=== PATIENT | male | born 1955 | race Caucasian/White ===

== ENCOUNTER 2020-03-09 08:39 | Outpatient (CLI) | payer MEDICARE, SELFPAY ==
--- NOTE | 2020-03-09 08:58 | CT_ITS ---
WS: [id number] CT neck w con* [id number] REASON FOR EXAM: NECK MASS IV CONTRAST ADMINISTERED: Omnipaque 300 95 mL TOTAL EXAM DLP: 774.[address] scans at [facility] use at least one of these dose optimization techniques: automat ed exposure control; mA and/or kV adjustment per patient size (includes targeted exams where dose is matched to clinical indication); or iterative reconstruction. FINDINGS: The soft tissue the neck was evaluated with coronal sagittal and axial planes. IV contrast was utilized. The parotid glands appear to be normal. The submaxillary glands were normal. Prespinal area showed no definite masses. The mandibular region show no definite masses there is evidence of multiple slightly enlarged anterio r chain lymph nodes present the largest on the left measured 0.98 cm. No aggressiveness of the lympha denopathy is seen. The paranasal sinuses are all normal. There is a retention cyst in the left maxilla. No destructive changes of the mandible are seen. The tongue area appear to be normal with no infiltrating changes noted. The left carotid artery is deviated slightly but no masses associated with this deformity are noted. The muscularis areas were normal throughout the neck anterior posterior chain. CT/CT neck w con* [id number] IMPRESSION: Benign lymphadenopathy in the anterior chain of the neck There is no gross masses identified on this study. A retention cyst in the left maxillary antrum.
--- NOTE | 2020-03-09 08:58 | CT_ITS ---
WS: [id number] CT LUNG CANCER SCREENING DLP: 99.77 mGy.cm DIvol: 2.44 mGy CLINICAL INFORMATION SCREENING VISIT: Baseline COMPARISON: No similar studies. FINDINGS Diagnostic quality: Satisfactory Comments: None. Lung Nodules: No pulmonary nodules. There is a very mild groundglass attenuation in the periphery of the RIGHT upper lobe posterior to the sternoclavicular joint. Subsolid opacification measuring less t shay 30 mm. Lungs: Chronic emphysema. No pneumonia. No bronchiectasis. Heart: Normal size heart. Moderate to severe atherosclerosis in the [place] coronary arteries. Other findings: Moderate atherosclerosis aorta. No aneurysm in the pulmonary artery size is normal. S mall benign-appearing lymph nodes in the mediastinum/measuring less than [address]/CT lung screening [id number] IMPRESSION: LUNG-RADS: 2S-Benign Appearance or Behavior with Significant Findings FOLLOW UP: 12 Month: Continue annual screening with LDCT Moderate to severe coronary artery calcifications.
[2020-03-09 09:32] LABS: Blood Urea Nitrogen 12 mg/dL (8-23); Glomerular Filtration Rate 84.7 mL/min (90-130)
[2020-03-09] MEDS: iohexol 300 mg/mL 100 mL Btl IV (10:18)
== END 2020-03-09 08:40 | disposition home or self-care (01) ==
LOC: RAD 08:45
PROVIDERS: PCP Internal Medicine; Visit Provider Internal Medicine
DX: F17.218 Nicotine dependence, cigarettes, with other nicotine-induced disorders (principal); Z12.2 Encounter for screening for malignant neoplasm of respiratory organs; R59.1 Generalized enlarged lymph nodes; M27.40 Unspecified cyst of jaw; I25.10 Atherosclerotic heart disease of native coronary artery without angina pectoris
CPT/HCPCS: 36415; 70491; 82565; 84520; G0297

== ENCOUNTER 2020-08-13 14:41 | Outpatient (CLI) | payer MEDICARE, SELFPAY ==
--- NOTE | 2020-08-13 14:48 | USCV_ITS ---
Stefan Ashleymie Age: 64 Gender: M : 1955 Exam Date: 08/13/2020 15:17 Ordering Phys: Ann Copeland MD Technologist: Princess Fernandez Exam Location: [facility] [place] Indication: MURMUR BP: 149 / 71 HR: 104 Rhythm: Sinus Technical Quality: Technically difficult study MEASUREMENTS (Male / Female) Normal Values 2D ECHO LV Diastolic Diameter PLAX 5.2 cm 4.2 - 5.9 / 3.9 - 5.3 cm LV Systolic Diameter PLAX 4.3 cm LV Chamber Size 4.3 cm IVS Diastolic Thickness 1.7 cm 0.6 - 1.0 / 0.6 - 0.9 cm IVS Systolic Thickness 1.6 cm LVPW Diastolic Thickness 1.2 cm 0.6 - 1.0 / 0.6 - 0.9 cm LVPW Systolic Thickness 1.6 cm RV Chamber Size 2.9 cm LVOT Diameter 2.1 cm LV Ejection Fraction 2D Teich 34.4 % LV Ejection Fraction MOD 2C 25.8 % LV Ejection Fraction 2C AL 23.1 % LA Diameter 3.0 cm LA Width 3.4 cm LA Height 5.3 cm RA Width 2.3 cm RA Height 4.3 cm Aorta at Sinotubular Diameter 2.5 cm M-MODE LV Diastolic Diameter MM 6.6 cm 4.2 - 5.9 / 3.9 - 5.3 cm LV Systolic Diameter MM 5.4 cm LV Ejection Fraction MM Teich 36.1 % IVS Diastolic Thickness MM 1.2 cm 0.6 - 1.0 / 0.6 - 0.9 cm IVS Systolic Thickness MM 1.7 cm LVPW Diastolic Thickness MM 1.2 cm 0.6 - 1.0 / 0.6 - 0.9 cm LVPW Systolic Thickness MM 1.4 cm RV Diastolic Diameter MM 0.6 cm Aortic Annulus Diameter 3.5 cm LA Ao Ratio MM 1.0 MV E Point Septal Separation 1.6 cm DOPPLER AV Peak Velocity 273.0 cm/s LVOT Peak Velocity 138.0 cm/s AV Area Cont Eq vti 1.7 cm squared AV Area Cont Eq pk 1.7 cm squared MV Area PHT 4.0 cm squared Mitral E to A Ratio 0.6 MV E' Velocity 33.0 cm/s Mitral E to MV E' Ratio 9.4 Mitral E to LV E' Lateral Ratio 10.3 Mitral E to LV E' Septal Ratio 8.9 TR Peak Velocity 32.0 cm/s TR Peak Gradient 0.4 mmHg TV Peak E Velocity 40.0 cm/s PV Peak Velocity 129.0 cm/s RV Acceleration Time 0.1 s RV Ejection Time 0.2 s RV AcT/ET 0.3 FINDINGS Left Ventricle Mildly increased left ventricular cavity size. Moderately decreased left ventricular systolic function. Left ventricular ejection fraction is estimated at 40 %. Global left ventricular hypokinesis. Grade II/IV diastolic dysfunction, moderately elevated filling pressures. Right Ventricle The right ventricle is normal in size and function. Right Atrium The right atrium is normal in size. Left Atrium The left atrium is normal in size. Mitral Valve Moderately thickened mitral valve. Moderate mitral annular calcification. No mitral valve stenosis. Trace mitral valve regurgitation. Aortic Valve Mild aortic valve calcification. No aortic valve stenosis. Mild aortic valve regurgitation. Tricuspid Valve Structurally normal tricuspid valve without significant stenosis or regurgitation. Pulmonary artery systolic pressure is normal. Pulmonic Valve Structurally normal pulmonic valve without significant stenosis. There is no pulmonic regurgitation. Pericardium Normal pericardium without effusion. Aorta Normal ascending aorta dimension. CONCLUSIONS 1-Mildly increased left ventricular cavity size. Moderately decreased left ventricular systolic function. Left ventricular ejection fraction is estimated at 40 %. Global left ventricular hypokinesis. Grade II/IV diastolic dysfunction, moderately elevated filling pressures. 2-Moderately thickened mitral valve. Moderate mitral annular calcification. No mitral valve stenosis. Trace mitral valve regurgitation. 3-Mild aortic valve calcification. No aortic valve stenosis. Mild aortic valve regurgitation. 4-Structurally normal tricuspid valve without significant stenosis or regurgitation. Pulmonary artery systolic pressure is normal. 5-There is no pericardial effusion. 6-There are no prior echocardiogram studies to compare. Derek De Los Santos MD (Electronically Signed) Final Date: 13 August 2020 20:09 S
== END 2020-08-13 14:42 | disposition home or self-care (01) ==
LOC: US 14:43
PROVIDERS: PCP Internal Medicine; Visit Provider Internal Medicine
DX: R01.1 Cardiac murmur, unspecified (principal); I08.0 Rheumatic disorders of both mitral and aortic valves
CPT/HCPCS: 93306

== ENCOUNTER 2021-03-23 12:50 | Outpatient (CLI) | payer MEDICARE, SELFPAY ==
--- NOTE | 2021-03-23 13:05 | CT_ITS ---
WS: [id number] LDCT LUNG CANCER SCREENING TECHNIQUE: Noncontrast CT of the chest with coronal and sagittal reformatted images. CLINICAL INFORMATION: NICOTINE DEPENDENCE,CIGARETTES W/OTHER NICOTINE DISORDERS COMPARISON: CT March 09, 2020 DLP: 64.48 mGy.cm DIvol: 1.[address] scans at [facility] use at least one of these dose optimization techniques: automat ed exposure control; mA and/or kV adjustment per patient size (includes targeted exams where dose is matched to clinical indication); or iterative reconstruction. FINDINGS: Again seen is hazy parenchymal attenuation in the right upper lobe unchanged since the prior examinat ion may represent chronic fibrosis. This is unchanged from previous. This measures approximately 3.0 CM. Aortic calcification. No mediastinal or hilar lymphadenopathy. Coronary calcification. Adrenal glands are normal. Hypertrophic changes thoracic spine. Calcified granuloma right lower lobe. CT/CT lung screening [id number] IMPRESSION: LUNG-RADS: 2-Benign Appearance or Behavior FOLLOW UP: 12 Month: Continue annual screening with LDCT
== END 2021-03-23 12:51 | disposition home or self-care (01) ==
LOC: RAD 12:55
PROVIDERS: PCP Internal Medicine; Visit Provider Internal Medicine
DX: Z12.2 Encounter for screening for malignant neoplasm of respiratory organs (principal); F17.218 Nicotine dependence, cigarettes, with other nicotine-induced disorders
CPT/HCPCS: 71271

== ENCOUNTER 2021-05-18 10:37 | Outpatient (CLI) | payer MEDICARE, SELFPAY ==
--- NOTE | 2021-05-18 11:00 | CT_ITS ---
WS: [id number] CT ANGIOGRAPHY OF THE ABDOMINAL AORTA WITH RUNOFF TO THE ANKLES HISTORY: I73.9 - Peripheral vascular disease, unspecified TECHNIQUE: Arterial injection is performed during imaging to evaluate the aorta and runoff vessels to the ankles. MIP and volume rendering imaging has also been performed. All images are reviewed. All C T scans at [facility] use at least one of these dose optimization techniques: automated ex posure control; mA and/or kV adjustment per patient size (includes targeted exams where dose is match ed to clinical indication); or iterative reconstruction. Contrast: Omnipaque 350; 95 mL IV. DLP: 1634.7 mGycm COMPARISON: 08/01/2017 Abdominal aorta: There is heavy calcified plaque throughout the abdominal aorta. There is soft tissue plaque and calcified plaque beginning below the level of the renal arteries. Greater than 50% stenos is involving the infrarenal aorta to the bifurcation. Calcified plaque with no high-grade obstruction involving the celiac axis and SMA. Renal arteries are patent. RIGHT lower extremity arterial system: There is occlusion involving the origin of the RIGHT common il iac artery. No contrast enhancement from the RIGHT common iliac artery to the common femoral artery o howie the femoral. Collateral circulation from the abdominal wall musculature branches. Very small daylin bhanu SFA and deep profunda. Multifocal areas of calcification significant stenoses in the distal SFA a nd Cooper's canal. Calcified plaque in the popliteal artery. Very small three-vessel caliber runoff t o the ankles. The anterior tibial and peroneal arteries are not identified below the mid tibia. LEFT lower extremity arterial system: Complete occlusion involving the proximal LEFT common iliac art sully. Reconstitution through the common femoral artery. Very small caliber superficial femoral artery and deep profunda. Multifocal areas of significant stenoses throughout the SFA to Cooper's canal. Com plete occlusion at Cooper's canal with reconstitution in the distal popliteal artery via the genicula te arteries. Small caliber three-vessel runoff distal to the tibia. Distally the anterior and peronea l arteries are very difficult to see and probably occluded. Posterior tibial artery is intact. Liver, gallbladder, spleen and adrenal glands and pancreas and kidneys are negative for any acute pro cess. No adenopathy or ascites. No GI tract obstruction. Prostate gland is mildly enlarged encroachin g into the bladder. Grade 1 anterolisthesis of L5 due to bilateral pars defects. CT/CT angio abd aorta runof [id number] IMPRESSION: 1. 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 Similar to the prior examination. 2. Multifocal areas of moderate to high-grade stenosis within the RIGHT superf icial femoral artery and popliteal artery. Similar to the prior study. 3. Complete occlusion LEFT proximal common iliac artery to the common femoral artery. This occlusion is new since 08/01/2017. 4. Multifocal areas of significant stenosis throughout the LEFT superficial fe moral artery to Cooper's canal. Complete occlusion and Cooper's canal with nilda nstitution via kidney is at the popliteal artery. 5. Very poor three-vessel runoff to the ankles. The anterior tibial and perone al arteries are occluded as described above with patent posterior tibial arteri es. 6. Moderate stenosis, greater than 50% involving the infrarenal abdominal aort a. Progression of the aortic stenosis since 2017.
[2021-05-18 11:33] LABS: Blood Urea Nitrogen 11 mg/dL (8-23); Glomerular Filtration Rate 134.8 mL/min (90-130)
[2021-05-18] MEDS: iohexol 350 mg/mL 100 mL Btl IV (11:47)
== END 2021-05-18 10:38 | disposition home or self-care (01) ==
PROVIDERS: PCP Internal Medicine; Visit Provider Internal Medicine
DX: I73.9 Peripheral vascular disease, unspecified (principal); M79.606 Pain in leg, unspecified; I74.5 Embolism and thrombosis of iliac artery; I70.8 Atherosclerosis of other arteries; I35.0 Nonrheumatic aortic (valve) stenosis
CPT/HCPCS: 75635; 82565; 84520; Q9967

== ENCOUNTER → 2021-07-08 11:30 | Outpatient (BNVA) | payer MEDICARE, SELFPAY | PROVIDERS: PCP Internal Medicine; Referring Provider Internal Medicine; Visit Provider Internal Medicine | DX: I73.9 Peripheral vascular disease, unspecified (principal); Z01.818 Encounter for other preprocedural examination; Z20.822 Contact with and (suspected) exposure to COVID-19 | CPT/HCPCS: 80048; 85025; 85610; 87635 ==

== ENCOUNTER 2021-07-14 06:01 | Outpatient (CLI) | payer MEDICARE, SELFPAY ==
[2021-07-14] VITALS (17 sets, daily range): BP systolic 97–163; BP diastolic 61–99; PULSE 69–98; RESP 15–27; TEMP 36.4; O2SAT 97; BMI 38.6
[2021-07-14 06:41] LABS: Basophils # 0.1 10^3/uL (0.0-0.1); Eosinophils # 0.4 10^3/uL (0.0-0.8); Eosinophils % 3.6 %; Hematocrit 48.5 % (42.0-52.0); Hemoglobin 16.5 g/dL (11.7-16.6); Lymphocytes # 2.1 10^3/uL (0.8-4.8); Lymphocytes % 20.8 %; Mean Corpuscular Hemoglobin 30.1 pg (28.0-34.0); Mean Corpuscular Volume 88.5 fl (80-94); Mean Platelet Volume 11.4 fL (7.4-10.4); Monocytes # 0.8 10^3/uL (0.2-0.9); Monocytes % 8.2 %; Neutrophils # 6.57 10^3/uL (1.8-7.7); Neutrophils % 66.1 %; Nucleated Red Blood Cells % 0 %; Platelet Count 179 10^3/cmm (130-400); Red Blood Count 5.48 10^6/uL (4.1-5.3); Red Cell Distribution Width 13.9 % (12.1-15.1)
[2021-07-14] MEDS: diphenhydrAMINE 50 mg Capsule PO (06:50)
--- NOTE | 2021-07-14 07:00 | XACV_ITS ---
Ht: 180 cm Wt: 126 kg BSA: 2.56 m2 Any Known Allergies: No known allergies Gender: Male : 1955 Exam Type: Invasive Peripheral Vascular Procedure(s): Procedure Description: Peripheral Cath Diagnostic Procedure Procedure Description: Lower extremities' angiography Exam Priority: Routine Lower Extremity Diagnostic Findings INDICATION: Severe bilateral lifestyle limiting claudication. Right lower extremity: External iliac artery: Occluded Common femoral artery: Has severe distal vessel stenosis Distal SFA: Patent, has calcified plaque Popliteal artery: Patent, has mild disease TP trunk: Patent Anterior tibial artery: Occluded Peroneal artery: Occluded Posterior tibial artery: Patent, supplying collateral blood flow to the anterior tibial artery territory.. Lower Extremity Interventional Findings Procedure note: Based on CT head findings, access was challenging. We decided to attempt revascularization of right lower extremity first by obtaining access in right popliteal artery. He has single-vessel runoff to the foot with patent posterior tibial artery. A 4 [place] Citizen pedal access sheath was introduced into the popliteal artery. After initial angiogram, it was upgraded to a 6 [place] sheath. We attempted crossing occluded external iliac artery segment with Glidewire with seeker support catheter. This was not possible. It was switched to command wire. It made some progress however could not cross all the way to the distal aorta. At this time we stopped further attempts at revascularization. Popliteal sheath was removed and pressure was held. 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 Conclusions Occluded right external and common iliac arteries. Single-vessel runoff to the right foot with patent popliteal, TP trunk and posterior tibial artery. Peroneal artery and anterior tibial arteries are occluded. Unsuccessful attempt at revascularization of right lower extremity. Recommendations Continue current medications. Risk factor modification advised. We will refer patient to vascular surgery for discussion regarding possible surgical options. Outpatient cardiology follow-up in 4 weeks. Access Site Site: Right Popliteal Sheath Size: 4 Fr Hemost... Method: Manual Compression Hemost... Success: Successful Procedure Details Findings Procedure Consent Obtained. June Vega RN. Pre-Procedure Time Out. Identified patient by full name and date of as verbalized by the patient/guarantor. Does the consent match the physician's order: Yes. Accurate & Complete Informed Consent: Yes. Inpatient/Outpatient History & Physical on Chart: Yes. If H&P is completed, is and addenduem needed: Yes; If yes, is the addendum complete: N/A. Visualize and Verify Site with Patient/Guarantor: Right Popliteal. Relevant Radiology Images available: Yes. The risks, benefits, and alternatives of sedation and/or procedure were discussed by physician. The patient agrees to continue. Procedure started. Correct patient, site and procedure confirmed by cath team. Current diagnosis: Severe lifestyle limiting claudication. PERRLA. Strong, equal hand hoisting machine operator bilaterally. Lungs clear x 5 lobes. IV Site on Arrival: 20 gauge in the left forearm. IV Fluids: 0.9% NaCl at KVO. 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 Pre Procedural Pulses: bilateral radial was 3+. Pre Procedural Pulses: bilateral dorsalis pedis was Doppled. Pre Procedural Pulses: right posterior tibial was Doppled. Pre Procedural Pulses: left posterior tibial was Absent. Oxygen started at 2liters/min via nasal canula. right popliteal was prepped with chloroprep then draped in the usual sterile fashion. Physician notified. Patient's family waiting in CPRU room #3. Equipment: 6F -. Cardiac Cath Pack. ACIST Manifold Kit Model BT 2000. Heparinized Saline (2 units/mL), 1000 mL bag. Kit, Micropuncture. Physician arrived. Baseline sample Acquired. HR: 103 BPM. Physician scrubbed in. Immediate Pre-Procedure Time Out. Correct Patient: Yes; Correct Procedure: Yes; Correct Site: Yes; Correct Patient Position: Yes; Correct Supplies: Yes; Dried Flammable Prep: Yes; Blood Products Available: N/A. Lidocaine 1% infiltrated to the right popliteal. Arterial access obtained with micropuncture set using Ultrasound. Hand injection of the right lower extremity performed through the sheath. Glidewire inserted through sheath and andvanced to the right common femoral. Pedal Access Kit out over the Glidewire. Sheath upsized to a 6 Fr. Seeker catheter inserted over the glidewire and advanced to the right common femoral. Glidewire out. Hand injection performed through the Seeker support catheter. Hand injection performed through the Seeker support catheter. Hand injection performed through the Seeker support catheter. Glidewire in. Glidewire out. Command 0.014 190cm Guidewire in. Seeker Support catheter advance over the Command guidewire to the right iliac. Command Guidewire out. Glidewire in. Glidewire out. Hand injection performed through the Seeker support catheter. Hand injection performed through the Seeker support catheter. Hand injection performed through the 6 japanese sheath. Physician scrubbed out. Sheath(s) removed and manual pressure held until hemostasis was achieved. Sterile 4x4 and Op-site applied to the puncture site. No oozing or hematoma noted. Post sheath removal instructions were given and the patient verbalized understanding. Post Procedure: Pulses reassessed and unchanged. PERRLA. Strong, equal hand hoisting machine operator bilaterally. No VTE prophylaxis required. Post-op diagnosis: Occluded right Common/External Iliac. Complications: none. Estimated blood loss: 5mL-10mL. A Manual Compression was successful obtaining hemostatsis at the Right Popliteal insertion site. Medication's Wasted: Lidocaine 1% = 10 mL. Medication's Wasted: Heparin = 1000 Units. Total IV fluids: 54 mL. Procedure completed. Patient transferred by bed to 1st floor. Vital chart was stopped. Procedure Medications Start: 8:06 AM Stop: 8:06 AM Medication: Versed Amount: 1 mg Route: I.V. Start: 8:06 AM Stop: 8:06 AM Medication: Fentanyl Amount: 50 mcg Start: 8:08 AM Stop: 8:08 AM Medication: Versed Amount: 1 mg Route: I.V. Start: 8:13 AM Stop: 8:13 AM Medication: Fentanyl Amount: 25 mcg Start: 8:23 AM Stop: 8:23 AM Medication: Versed Amount: 1 mg Route: I.V. Start: 8:37 AM Stop: 8:37 AM Medication: Versed Amount: 1 mg Route: I.V. I, the attending physician, have reviewed and verified all procedure medications. Yes, all medications given per verbal order History/Risk Factors Hypertension: Yes Dyslipidemia: Yes Peripheral Arterial Disease (PAD): Yes Obesity: Yes Renal Disease: No Tobacco Use: Current/Recent(w/in 1 year) Prior Interventions PCI: No CABG: No Valve Surgery: No Report Signatures Finalized by Abhi Monahan MD on 07/26/2021 12:07 PM
--- NOTE | 2021-07-14 07:54 | W.PM.OPSFHP ---
Same Day Surgery H&P Indication for Procedure/HPI DATE OF PROCEDURE: July 14, 2021 CHIEF COMPLAINT/INDICATIONFOR SURGICAL PROCEDURE: Severe bilateral lifestyle limiting claudication PREOP DIAGNOSIS: Severe bilateral lifestyle limiting claudication PLANNED PROCEDRUE: Operation Date: 07/14/21 07:00 Proposed Procedures p Peripheral Diagnostic(Bilateral) - Abhi Monahan M.D Possible peripheral intervention 65-year-old man with past medical history of diabetes, obesity, hypertension, dyslipidemia, tobacco abuse, obesity and sleep apnea, current smoker who has been having severe bilateral lifestyle limiting claudication more significant on the left side. He underwent CTA which showed severe peripheral artery disease. Plan for attempt at revascularization of right lower extremity from right popliteal access. ROS CONSTITUTIONAL: No fever or chills. [] EYES: No blurring of vision or other visual disturbances lately. [] ENT: No hoarseness of voice, auditory disturbances or sore throat. [] CARDIOVASCULAR: As mentioned above. [] RESPIRATORY: No significant cough. [] GASTROINTESTINAL: No hematemesis or melena. [] GENITOURINARY: No dysuria or hematuria. [] INTEGUMENTARY: No skin rashes or history of skin cancer. [] NEURO: No transient ischemic attacks or amaurosis. [] PSYCHIATRIC: No history of psychosis or major depression. [] HEMATOLOGIC: No bleeding disorders or significant anemia. [] ENDOCRINE: No history of polyuria or polydipsia. [] MUSCULOSKELETAL: Bilateral lower extremity pain ALLERGY/IMMUNOLOGY: As mentioned above. [] Medications/Allergies* Home Medications Medication Instructions Recorded Confirmed Type amlodipine 10 mg tablet 10 mg PO DAILY 04/01/20 07/14/21 History aspirin 81 mg tablet,delayed 81 mg PO DAILY 04/01/20 07/14/21 History release atorvastatin 40 mg tablet 40 mg PO DAILY 04/01/20 07/14/21 History enalapril maleate 10 mg tablet 10 mg PO DAILY 04/01/20 07/14/21 History hydrochlorothiazide 12.5 mg tablet 25 mg PO DAILY tab 04/01/20 07/14/21 History metformin 1,000 mg tablet 1,000 mg PO BID 04/01/20 07/14/21 History niacin 500 mg tablet 500 mg PO DAILY 04/01/20 07/14/21 History omeprazole magnesium 20 mg 20 mg PO DAILY 04/08/20 07/14/21 History tablet,delayed release tamsulosin 0.4 mg capsule 0.8 mg PO DAILY cap 04/08/20 07/14/21 History Allergies/Adverse Reactions Allergy/AdvReac Type Severity Reaction Status Date / Time No Known Allergies Allergy Verified 07/13/21 12:15 Pertinent History/Comorbid Conditions* Medical History (Updated 04/18/21 @ 20:39 by Abhi Monahan M.D) Diabetes HTN (hypertension) Hyperlipidemia Obesity FREEMAN (obstructive sleep apnea) Tobacco abuse Family History (Updated 04/01/20 @ 13:52 by Rayna Hightower RN) CAD (coronary artery disease) Father Myocardial infarction Father Cancer Father LUNG Social History Smoking and tobacco status: current every day smoker cigarettes Packs smoked per day: 1 Alcohol intake: current Marital status: / service: Yes branch: [employer] Pertinent Exam Findings alert, oriented x 3, clear to auscultation bilaterally and regular rate & rhythm Conscious Sedation Assessment PATIENT ASSESSED PRIOR TO SEDATION, WITH NO CHANGE NOTED: Yes AIRWAY EVAL/ANESTHESIA PLAN: normal airway, see other exam findings, ASA III, Monitored Anesthesia, Local Anesthesia, Risks, benefits & alternatives of sedation and/or procedure discussed and Patient agrees to continue as planned Recommendations Surgery/Procedure today (Peripheral angiogram with possible intervention) Coding Level of Care Code Acute Diagnostic Radiologic Technologist for Heidi Lopez
--- NOTE | 2021-07-14 15:14 | PC.NURSE ---
Discharge Note Patient discharged to home via private vehicle accompanied by spouse. Discharge instructions reviewed with patient and/or inside sales account representative. Mobile pharmacy medications and/or prescriptions provided. Belongings/home medications returned.
== END 2021-07-14 15:15 | disposition home or self-care (01) ==
LOC: CCL 06:07 → CSU 08:18
PROVIDERS: PCP Internal Medicine; Visit Provider Internal Medicine
DX: I70.203 Unspecified atherosclerosis of native arteries of extremities, bilateral legs (principal); I10 Essential (primary) hypertension; E78.5 Hyperlipidemia, unspecified; E66.9 Obesity, unspecified; Z68.38 Body mass index [BMI] 38.0-38.9, adult; F17.210 Nicotine dependence, cigarettes, uncomplicated; Z79.82 Long term (current) use of aspirin; E11.9 Type 2 diabetes mellitus without complications; G47.33 Obstructive sleep apnea (adult) (pediatric); Z82.49 Family history of ischemic heart disease and other diseases of the circulatory system
CPT/HCPCS: 36415; 75710; 85025; C1769; C1887; C1894; J1644; J2250; J3010; J7030; Q0163; Q9967

== ENCOUNTER → 2021-07-21 11:20 | Outpatient (BNVA) | payer MEDICARE, SELFPAY | PROVIDERS: PCP Internal Medicine; Visit Provider Nurse Practitioner Family | DX: I73.9 Peripheral vascular disease, unspecified (principal) | CPT/HCPCS: 80048 ==

== ENCOUNTER 2021-11-30 09:06 | Outpatient (CLI) | payer MEDICARE, SELFPAY ==
--- NOTE | 2021-11-30 09:16 | USCV_ITS ---
Janes Ashley Age: 66 Gender: M : 1955 Exam Date: 11/30/2021 09:32 Ordering Phys: Ann Copeland MD Technologist: Live Murillo Exam Location: [facility] – [place] Indication: MURMUR BP: 130 / 70 HR: 90 Rhythm: Sinus Technical Quality: Adequate MEASUREMENTS (Male / Female) Normal Values 2D ECHO LV Diastolic Diameter PLAX 3.4 cm 4.2 - 5.9 / 3.9 - 5.3 cm LV Systolic Diameter PLAX 2.6 cm IVS Diastolic Thickness 1.8 cm 0.6 - 1.0 / 0.6 - 0.9 cm IVS Systolic Thickness 2.0 cm LVPW Diastolic Thickness 1.5 cm 0.6 - 1.0 / 0.6 - 0.9 cm LVPW Systolic Thickness 1.5 cm LVOT Diameter 2.0 cm LV Ejection Fraction 2D Teich 44.0 % LV Ejection Fraction MOD 2C 45.6 % LV Ejection Fraction 2C AL 43.3 % LA Diameter 4.1 cm Aorta at Sinotubular Diameter 2.2 cm M-MODE Aortic Annulus Diameter 3.3 cm LA Ao Ratio MM 1.4 MV E Point Septal Separation 1.0 cm DOPPLER MV Area PHT 4.2 cm squared Mitral E to A Ratio 0.5 MV E' Velocity 27.5 cm/s Mitral E to MV E' Ratio 8.7 Mitral E to LV E' Lateral Ratio 9.8 Mitral E to LV E' Septal Ratio 7.9 TR Peak Velocity 188.0 cm/s TR Peak Gradient 14.1 mmHg TV Peak E Velocity 72.0 cm/s Right Atrial Pressure 3.0 mmHg Pulmonary Artery Systolic Pressu 17.1 mmHg PV Peak Velocity 144.0 cm/s FINDINGS Left Ventricle Normal left ventricular size with a slightly diminished ejection fraction of 45 to 50%. Mild left ventricular hypertrophy. Grade I/IV diastolic dysfunction (abnormal relaxation filling pattern), normal to mildly elevated filling pressures. Segmental wall motion analysis revealed diffuse hypokinesia inferior wall Right Ventricle Normal right ventricular size and systolic function. Right Atrium Possibly of normal size Left Atrium Possibly of normal size Mitral Valve Thickened mitral valve. Moderate mitral annular calcification. Aortic Valve No gross abnormalities noted Tricuspid Valve Could not be visualized well Pulmonic Valve Pulmonic valve not well visualized. Pericardium No pericardial effusion. Aorta Normal aortic annulus size. CONCLUSIONS Normal left ventricular size with a borderline low ejection fraction of 50 to 55%. Mild left ventricular hypertrophy. Grade I/IV diastolic dysfunction (abnormal relaxation filling pattern), normal to mildly elevated filling pressures. Thickened mitral valve. Moderate mitral annular calcification. There is no pericardial effusion. There are no intracardiac masses. Technically difficult study because of the poor ultrasonic window. Comparison with the previous study is difficult because of the technical difficulties. The ejection fraction appears to have slightly improved Dr Armond Valdez MD FACC (Electronically Signed) Final Date: 30 November 2021 18:05 S
== END 2021-11-30 09:07 | disposition home or self-care (01) ==
LOC: RAD 09:08
PROVIDERS: PCP Internal Medicine; Visit Provider Internal Medicine
DX: R01.1 Cardiac murmur, unspecified (principal); I05.9 Rheumatic mitral valve disease, unspecified
CPT/HCPCS: 93306